=== PATIENT | female | born 1955 | race Caucasian/White ===

== ENCOUNTER 2025-03-24 13:25 | Emergency (ER) | payer OTHER ==
[~2025-03-24] VITALS: Ht 160 cm; Wt 52.2 kg
[~2025-03-24 13:25] MED LIST: CATAFLAM50 MG PO; CRESTOR20 MG PO; DURICEF500 MG PO; GLIPIZIDE5 MG PO; MEDROLPACK PO; MOTRIN600 MG PO; NEURONTIN600 MG PO; ORPH100T PO; SYNTROID; TUSSIONEX PENNKI5 ML PO; ULTRACEP; VASOTEC; [UNRECOGNIZED DRUG - OTHER]
[2025-03-24] MEDS ORDERED: KETOROLAC TROMETHAMINE 60 MG VIAL IM ONE ×2 (14:45→15:15)
[2025-03-24] MEDS ORDERED: ORPHENADRINE CITRATE 30 MG/ML AMPUL IV ONE (14:45)
[2025-03-24] MEDS ORDERED: ORPHENADRINE CITRATE 30 MG/ML AMPUL ONE (15:15)
== END 2025-03-24 18:41 | disposition home or self-care (01) ==
LOC: ER 13:25
DX: M62.838 Other muscle spasm (principal); M47.812 Spondylosis without myelopathy or radiculopathy, cervical region; E03.8 Other specified hypothyroidism; E11.9 Type 2 diabetes mellitus without complications; Z79.84 Long term (current) use of oral hypoglycemic drugs
CPT/HCPCS: 72040; 96365; 96372; 99283; J1885; J2360